=== PATIENT | female | born 1990 | race Caucasian/White ===

== ENCOUNTER → 2022-03-31 | Outpatient (CLI) | payer BC, SELFPAY ==
[2022-04-08 15:39] LABS: HPV APTIMA, High Risk Negative (Negative)
== END | disposition home or self-care (01) ==
LOC: LABSPEC 16:17
PROVIDERS: PCP Family Medicine; Referring Provider Registered Nurse; Visit Provider Registered Nurse
DX: Z12.4 Encounter for screening for malignant neoplasm of cervix (principal)
CPT/HCPCS: 87624; 88175; G0145

== ENCOUNTER → 2022-05-20 | Outpatient (CLI) | payer BC, SELFPAY ==
[2022-05-21 21:07] LABS: Chlamydia By Nucleic Acid AMP Negative (Negative)
[2022-05-21 21:44] LABS: Gonococcus By Nucleic Acid AMP Negative (Negative)
== END | disposition home or self-care (01) ==
LOC: LABSPEC 12:00
PROVIDERS: PCP Family Medicine; Referring Provider Obstetrics & Gynecology; Visit Provider Obstetrics & Gynecology
DX: Z34.90 Encounter for supervision of normal pregnancy, unspecified, unspecified trimester (principal)
CPT/HCPCS: 87086; 87491; 87591

== ENCOUNTER → 2022-06-04 | Outpatient (CLI) | payer BC, SELFPAY ==
[2022-06-04 10:47] LABS: Absolute Lymphocyte Count 2.16 X10^3/uL (0.83-4.51); Absolute Neutrophil Count 7.5 X10^3/uL (2.0-7.7); Basophil# 0.03 X10^3/uL; Basophil% 0.3 % (0-1); Eosinophil# 0.11 X10^3/uL; Eosinophils% 1.1 % (0-5); Hematocrit 41.2 % (37-47); Hemoglobin 13.9 g/dL (12.0-15.0); Lymphocyte # 2.16 X10^3/ul (0.83-4.51); Lymphocyte % 20.8 % (19-41); Mean Corp Hgb Conc 33.7 g/dL (32-36); Mean Corpuscular Hgb 30.2 pg (27.0-32.0); Mean Corpuscular Volume 89.6 fL (81-99); Mean Platelet Vol. 9.8 fl (6.2-12.0); Monocyte# 0.56 X10^3/uL; Monocyte% 5.4 % (0-10); NRBC Flagged by Analyzer 0 % (0-5); Neutrophil # 7.52 X10^3/uL (2.7-7.7); Neutrophil % 72.2 % (47-70); Platelet Count 271 K/mm3 (150-450); RBC Distribution Width CV 13.1 % (11.6-14.6); White Blood Count 10.4 K/mm3 (4.4-11.0)
[2022-06-04 10:56] LABS: Glucose Challenge Gest 1H 50g 123 mg/dL (70-140)
[2022-06-04 11:38] LABS: HIV - WCH Non-Reactive (Nonreactive); Hepatitis B Surface Antigen Non-Reactive (Nonreactive); Hepatitis C Antibody Non-Reactive (Nonreactive); Rubella IgG Reactive (Nonreactive); Syphilis Antibodies Non-reactive
[2022-06-04 11:43] LABS: NATERA MAILED SPECIMEN
== END | disposition home or self-care (01) ==
PROVIDERS: PCP Family Medicine; Referring Provider Obstetrics & Gynecology; Visit Provider Obstetrics & Gynecology
DX: O09.90 Supervision of high risk pregnancy, unspecified, unspecified trimester (principal); Z31.430 Encounter of female for testing for genetic disease carrier status for procreative management; Z3A.00 Weeks of gestation of pregnancy not specified
CPT/HCPCS: 36415; 82950; 85025; 86703; 86762; 86780; 86803; 86850; 86900; 86901; 87340

== ENCOUNTER → 2022-07-16 | Outpatient (CLI) | payer BC, SELFPAY | END | disposition home or self-care (01) | PROVIDERS: PCP Family Medicine; Referring Provider Registered Nurse; Visit Provider Registered Nurse | DX: Z36.9 Encounter for antenatal screening, unspecified (principal) | CPT/HCPCS: 36415 ==

== ENCOUNTER → 2022-10-01 | Outpatient (CLI) | payer BC, SELFPAY ==
[2022-10-01 09:56] LABS: Absolute Lymphocyte Count 2.14 X10^3/uL (0.83-4.51); Absolute Neutrophil Count 8.7 X10^3/uL (2.0-7.7); Basophil# 0.02 X10^3/uL; Basophil% 0.2 % (0-1); Eosinophil# 0.09 X10^3/uL; Eosinophils% 0.8 % (0-5); Hematocrit 34.1 % (37-47); Hemoglobin 11.1 g/dL (12.0-15.0); Lymphocyte # 2.14 X10^3/ul (0.83-4.51); Lymphocyte % 18.7 % (19-41); Mean Corp Hgb Conc 32.6 g/dL (32-36); Mean Corpuscular Hgb 29.8 pg (27.0-32.0); Mean Corpuscular Volume 91.7 fL (81-99); Mean Platelet Vol. 10.8 fl (6.2-12.0); Monocyte# 0.44 X10^3/uL; Monocyte% 3.8 % (0-10); NRBC Flagged by Analyzer 0 % (0-5); Neutrophil # 8.68 X10^3/uL (2.7-7.7); Neutrophil % 75.8 % (47-70); Platelet Count 229 K/mm3 (150-450); RBC Distribution Width CV 12.8 % (11.6-14.6); RBC Distribution Width SD 42.8 fl (35.1-43.9); Red Blood Count 3.72 M/mm3 (4.2-5.4); White Blood Count 11.5 K/mm3 (4.4-11.0)
[2022-10-01 10:35] LABS: Glucose Challenge Gest 1H 50g 141 mg/dL (70-140)
[2022-10-01 11:01] LABS: HIV - WCH Non-Reactive (Nonreactive); Syphilis Antibodies Non-reactive
== END | disposition home or self-care (01) ==
PROVIDERS: PCP Family Medicine; Referring Provider Obstetrics & Gynecology; Visit Provider Obstetrics & Gynecology
DX: O09.90 Supervision of high risk pregnancy, unspecified, unspecified trimester (principal); Z13.1 Encounter for screening for diabetes mellitus; Z3A.00 Weeks of gestation of pregnancy not specified
CPT/HCPCS: 36415; 82950; 85025; 86703; 86780

== ENCOUNTER → 2022-11-12 | Outpatient (CLI) | payer BC, SELFPAY ==
[2022-11-12 07:40] LABS: Glucose GTT-Gestation. Fasting 88 mg/dL (<105)
[2022-11-12 09:00] LABS: Glucose GTT-Gestational 1 Hr 173 mg/dL (<190)
[2022-11-12 09:29] LABS: Glucose GTT-Gestational 2 Hr 145 mg/dL (<165)
[2022-11-12 10:39] LABS: Glucose GTT-Gestational 3 Hr 134 L (<145)
== END | disposition home or self-care (01) ==
LOC: LAB 06:45
PROVIDERS: PCP Family Medicine; Referring Provider Obstetrics & Gynecology; Visit Provider Obstetrics & Gynecology
DX: O99.810 Abnormal glucose complicating pregnancy (principal); Z3A.00 Weeks of gestation of pregnancy not specified
CPT/HCPCS: 36415; 82951; 82952

== ENCOUNTER 2022-11-24 13:17 | Outpatient (CLI) | payer BC, SELFPAY ==
[2022-11-24 13:33] VITALS: BP 122/77; PULSE 89
[2022-11-24 13:51] VITALS: BMI 35.6
[2022-11-24 14:13] LABS: ROM Internal Control Test YES-OK TO RESULT pt. (Internal QC); ROM Patient Test Negative (Negative); Record Kit Lot#, ROM+ K1409
--- NOTE | 2022-11-24 14:36 | OB.TRI.HP_ITS ---
HPI - General HPI Narrative AMBREEN HAWTHORNE, is a 32 y/o @ 36 weeks 1 day who presents to L&D with possible loss of fluid. no vaginal bleeding or dec fm. no contraction pain Maternal Data Information ROBER Calculator Estimated Delivery Date Method Current WG Current Estimate 12/21/22 LMP (Certain) 36w 1d PFSH PFSH Medical History Rheumatoid arthritis Home Medications certolizumab pegol 400 mg/2 mL (200 mg/mL x2) subcutaneous syringe kit (Cimzia) 400 mg subcut MONTHLY 03/31/22 [History Last Taken 11/18/22 21:00 400 mg] folic acid 1 mg tablet 1 mg PO DAILY 05/13/22 [History Last Taken Unknown] multivitamin (One Daily Multivitamin tablet) 1 tab PO DAILY 05/13/22 [History Last Taken 11/15/22 21:00 1 TAB] Allergy/AdvReac Type Severity Reaction Status Date / Time No Known Allergies Allergy Verified 11/24/22 13:48 Family History Father Celiac disease Grandmother Diabetes Grandfather Heart disease Grandmother Diabetes Osteoporosis Surgical History Hx of wisdom tooth extraction Social History adopted: No household members: family number of children: 1 current occupational status: employed current occupation: [employer] current occupational exposures/hazards: No pets and animals: Yes (not managing litterbox) pets and animals: cat(s) and dog(s) history of recent travel: No sexually active: Yes Smoking Status: Never smoker alcohol intake: current alcohol intake frequency: holidays/special occasions only details: social- not while substance use type: does not use well-balanced diet: daily or most days caffeine: No eating out: 1-3 times/week during the past year weight has: remained stable stanley/jewish: Latter-Day seatbelt use: always do you feel safe at home: Yes additional social history: spouse - Christopher (interpretive program coordinator) History 2 Elective abortions Hx Para 1 Spontaneous abortions Hx # Term Pregnancies Ectopic pregnancies Hx # Pregnancies Multiple births # of living children 1 Past Pregnancies Del. Date Name GA/Weeks Outcome Route Bth Weight Gen Labor Lgth Anesthesia Del Locatn Provider FOB 07/01/20 Jayna 42 live - full term 8#13oz Female epidural Abi[facility] Davison Fr[facility] Patterson Delivery Date: 07/01/20 Last Updated by: Izabella Rivero IOL post date Visit Details Expected Delivery Route/Plan Labor Preferences- CB/BF classes: [] labor support person: [] labor intervention preferences: [] pain management options preferred: [] cut cord/dad catch: [] : [] PP control planned: [] discussed possible routes of delivery and associated risks: [] special requests: [] Plans Covid status: discussed Flu vaccine: discussed Tdap vaccine: given Rhogam: na LARC form signed:declined movement and labor precautions reviewed. Problem list reviewed and updated with the most current plan of care details and appropriate orders placed. Relevant counseling for the gestational age provided. Continue routine care and follow up unless otherwise noted in visit notes/problem list details OB Flowsheet Initial Weight: Not Recorded Date -?-?-?-?-?-?-?-?-?-?-?-?- EGA Weight BP Urine Prot -?-?-?-?-?-?-?-?-?-?-?-?- Glucose FHR FuHt Pres Dilation -?-?-?-?-?-?-?-?-?-?-?-?- Effaced St Visit Note 05/20/22 -?-?-?-?-?-?-?-?-?-?-?-?- 9w 2d 194 lb 126/82 -?-?-?-?-?-?-?-?-?-?--?-?- 180 -?-?-?-?-?-?-?-?-?-?-?-?- JV- single live iup consistent with LMP. ROBER 12/21/22. desires NIPT. 06/16/22 -?-?-?-?-?-?-?-?-?-?-?-?- 13w 1d 193 lb 6 oz 122/83 Nega tive -?-?-?-?-?-?-?-?-?-?-?-?- Negative 156 -?-?-?-?-?-?-?-?-?-?-?-?- LC- normal labs. no vb/cramping. discussed and desires AFP. 07/16/22 -?-?-?-?-?-?-?-?-?-?-?-?- 17w 3d 196 lb 4 oz 116/83 Trac e -?-?-?-?-?-?-?-?-?-?-?-?- Negative 155 -?-?-?-?-?-?--?-?-?-?-?-?- JV- going to [facility] tomorrow. no complaints. afp ordered. 08/13/22 -?-?-?-?-?-?-?-?-?-?-?-?- 21w 3d 198 lb 2 oz 198 lb 2 oz 125/82 Negative -?-?-?-?-?-?-?-?-?-?-?-?- Negative 150 -?-?-?-?-?-?-?-?-?-?-?-?- SM- no vb lof go od fm no regular ctx 09/10/22 -?-?-?-?-?-?-?-?-?-?-?-?- 25w 3d 200 lb 8 oz 111/75 Nega tive -?-?-?-?-?-?-?-?-?-?-?-?- Negative 154 25.5 -?-?-?-?-?-?-?-?-?-?-?-?- JV- no lof, vagi nal bleeding, or dec fm. no complaints. gct next visti. 10/08/22 -?-?-?-?-?-?-?-?-?-?-?-?- 29w 3d 204 lb 4 oz 107/69 Nega tive -?-?-?-?-?-?-?-?-?-?-?-?- Negative 140 28 -?-?-?-?-?-?-?-?-?-?-?-?- KW-no vb/lof/ctx . good fm. 3 hour on tuesday. 10/22/22 -?-?-?-?-?-?-?-?-?-?-?-?- 31w 3d 203 lb 138/80 Negative -?-?-?-?-?-?-?-?-?-?-?-?- Negative 145 31 -?-?-?-?-?-?-?-?-?-?-?-?- SM- no vb lof go od fm no regular ctx 11/05/22 -?-?-?-?-?-?-?-?-?-?-?-?- 33w 3d 206 lb 2 oz 114/69 Nega tive -?-?-?-?-?-?-?-?-?-?-?-?- Negative 145 34 -?-?-?-?-?-?-?-?-?-?-?-?- KW-no vb/lof/ctx . good fm. TDAP and flu today. 11/19/22 -?-?-?-?-?-?-?-?-?-?-?-?- 35w 3d 206 lb 128/80 Negative -?-?-?-?-?-?-?-?-?-?-?-?- Negative 140 36 -?-?-?-?-?-?-?-?-?-?-?-?- SM- no vb lof go od fm n regular ctx, had spotting last staurday and went away ROS Constitutional Constitutional: Reports systems reviewed and no addt'l complaints, except as documented Gastrointestinal Gastrointestinal: Denies bloating, constipation, cramping, diarrhea, nausea or vomiting Genitourinary Genitourinary: Reports other Details: Denies vaginal odor, vaginal bleeding, or vaginal discharge ; Denies difficulty urinating or flank pain NST FHR Rate Baby A Baseline: 130 Variability:: Moderate Accelerations:: 15 x 15 Decelerations:: None NST Reactive:: Yes FHR Category:: Category I Assessment & Plan (1) Abnormal glucose affecting : COMMENT: 3 hr gtt ordered (2) Circumvallate placenta: COMMENT: growth US q 4 weeks -33% at 23 weeks, 46% at 28 weeks. 32 wk 42%; 10 55% (3) History of depression, currently : (4) Supervision of high-risk : COMMENT: PRR , ROBER 12/21/22, girl Isabela Dorantes, Leonrado (5) : QUALIFIERS: Weeks of gestation: 35 weeks Qualified Code(s): Z3A.35 - 35 weeks gestation of COMMENT: normal anatomy, NIPT low risk, nl Carrier testing, afp negative (6) Rheumatoid arthritis: COMMENT: on a biologic. plan for monthly growth scans (7) False labor before 37 completed weeks of gestation: COMMENT: Rom plus neg on 11/24/22 PLAN: Plan Rom + was negative and cx is closed pt reassured per nurse NST reactive ok to dc to home with labor and srom precautions Charges/Coding Multi Select Codes Urinary/Genital Urinary/Genital CPT Codes: 78539-09 non-stress test Interp
== END 2022-11-24 14:40 | disposition home or self-care (01) ==
LOC: WPOUT 13:21 → WP 13:22
PROVIDERS: PCP Family Medicine; Visit Provider Obstetrics & Gynecology
DX: O47.03 False labor before 37 completed weeks of gestation, third trimester (principal); M06.9 Rheumatoid arthritis, unspecified; Z3A.36 36 weeks gestation of pregnancy; O99.891 Other specified diseases and conditions complicating pregnancy; O43.113 Circumvallate placenta, third trimester; O99.810 Abnormal glucose complicating pregnancy; Z79.899 Other long term (current) drug therapy
CPT/HCPCS: 59025; 59050; 84112; 99221; G0378

== ENCOUNTER → 2022-11-25 | Outpatient (CLI) | payer BC, SELFPAY ==
[2022-11-25 15:32] LABS: Group B Strep DNA By PCR POSITIVE (Negative); Probe Check PASS
== END | disposition home or self-care (01) ==
LOC: LABSPEC 13:23
PROVIDERS: PCP Family Medicine; Visit Provider Advanced Practice Midwife
DX: Z34.90 Encounter for supervision of normal pregnancy, unspecified, unspecified trimester (principal)
CPT/HCPCS: 87653

== ENCOUNTER 2022-12-03 11:25 | Outpatient (CLI) | payer BC, SELFPAY ==
[2022-12-03] VITALS (43 sets, daily range): BP systolic 115–120; BP diastolic 70–71; PULSE 92–120; TEMP 36.8; O2SAT 96–99; BMI 35.3
--- NOTE | 2022-12-03 13:18 | EKG12_ITS ---
Test Reason : TACHY Blood Pressure : / mmHG Vent. Rate : 099 BPM Atrial Rate : 099 BPM P-R Int : 142 ms QRS Dur : 084 ms QT Int : 354 ms P-R-T Axes : 030 014 009 degrees QTc Int : 454 ms Normal sinus rhythm Normal ECG No previous ECGs available Confirmed by CHERELLE QUILES, NANY ([id number]), medical editor DUSTIN ARMENTA ([id number]) on 12/08/2022 6:34:53 AM Referred By: Laney Alonso Confirmed By:NANY VILLARREAL MD
[2022-12-03 13:46] LABS: Hematocrit 32.1 % (37-47); Hemoglobin 10.6 g/dL (12.0-15.0); Mean Corpuscular Hgb 28.7 pg (27.0-32.0); Mean Platelet Vol. 11.3 fl (6.2-12.0); Platelet Count 165 K/mm3 (150-450); RBC Distribution Width CV 13.2 % (11.6-14.6); RBC Distribution Width SD 41.3 fl (35.1-43.9); Red Blood Count 3.69 M/mm3 (4.2-5.4); White Blood Count 8.8 K/mm3 (4.4-11.0)
[2022-12-03 14:06] LABS: ALB/GLOB Ratio 0.6 RATIO (0.9-2.4); AST(SGOT) 8 U/L (15-37); Alanine Aminotransfer ALT/SGPT 17 U/L (13-56); Albumin, Serum 2.6 g/dL (3.2-5.0); Alkaline Phosphatase 133 U/L (45-117); Anion Gap 6 (5-15); BUN 6 mg/dL (7-18); Calcium,Total 8.7 mg/dL (8.5-10.1); Chloride 109 mmol/L (98-107); Creatinine, Serum 0.33 mg/dL (0.55-1.02); EST Glomerular Filtration Rate 243 mL/min (>60); Est Glom Filt Rate - Afr Amer 294 mL/min (>60); Estimated Creatinine Clearance 211.34 ml/min; Globulin 4.2 g/dL (2.2-4.2); Glucose 85 mg/dL (74-106); Protein, Total 6.8 g/dL (6.4-8.2); Sodium Level 136 mmol/L (136-145)
--- NOTE | 2022-12-04 11:01 | OB.TRI.HP_ITS ---
HPI - General HPI Narrative AMBREEN HAWTHORNE, is a 32 y/o @ 37 weeks 3 days who presents to L&D with the complaint of rapid heart rate. no shortness of breath, chest pain, or nausea. She reports good movement without loss of fluid or vaginal bleeding. her inital pulse was 100 range Maternal Data Information ROBER Calculator Estimated Delivery Date Method Current WG Current Estimate 12/21/22 LMP (Certain) 37w 4d PFSH PFSH Medical History Rheumatoid arthritis Home Medications certolizumab pegol 400 mg/2 mL (200 mg/mL x2) subcutaneous syringe kit (Cimzia) 400 mg subcut MONTHLY 03/31/22 [History Last Taken 11/19/22 11:51] folic acid 1 mg tablet 1 mg PO DAILY 05/13/22 [History Last Taken 12/02/22 11:51] multivitamin (One Daily Multivitamin tablet) 1 tab PO DAILY 05/13/22 [History Last Taken 12/02/22 11:51] Allergy/AdvReac Type Severity Reaction Status Date / Time No Known Allergies Allergy Verified 12/03/22 11:50 Family History Father Celiac disease Grandmother Diabetes Grandfather Heart disease Grandmother Diabetes Osteoporosis Surgical History Hx of wisdom tooth extraction Social History adopted: No household members: family number of children: 1 current occupational status: employed current occupation: [employer] current occupational exposures/hazards: No pets and animals: Yes (not managing litterbox) pets and animals: cat(s) and dog(s) history of recent travel: No sexually active: Yes Smoking Status: Never smoker alcohol intake: current alcohol intake frequency: holidays/special occasions only details: social- not while substance use type: does not use well-balanced diet: daily or most days caffeine: No eating out: 1-3 times/week during the past year weight has: remained stable stanley/anglican: Buddhism seatbelt use: always do you feel safe at home: Yes additional social history: spouse - Christopher (program control analyst) History 2 Elective abortions Hx Para 1 Spontaneous abortions Hx # Term Pregnancies Ectopic pregnancies Hx # Pregnancies Multiple births # of living children 1 Past Pregnancies Del. Date Name GA/Weeks Outcome Route Bth Weight Infant [facility]20 Jayna 42 live - full term 8#13oz Female epidural [place] [address] [place] Delivery Date: 07/01/20 Last Updated by: Izabella Rivero IOL post date Visit Details Expected Delivery Route/Plan Labor Preferences- CB/BF classes: [] labor support person: [] labor intervention preferences: [] pain management options preferred: [] cut cord/dad catch: [] : [] PP control planned: [] discussed possible routes of delivery and associated risks: [] special requests: [] Plans Covid status: discussed Flu vaccine: discussed Tdap vaccine: given Rhogam: na LARC form signed:declined movement and labor precautions reviewed. Problem list reviewed and updated with the most current plan of care details and appropriate orders placed. Relevant counseling for the gestational age provided. Continue routine care and follow up unless otherwise noted in visit notes/problem list details OB Flowsheet Initial Weight: Not Recorded Date -?-?-?-?-?-?-?-?-?-?-?-?- EGA Weight BP Urine Prot -?-?-?-?-?-?-?-?-?-?-?-?- Glucose FHR FuHt Pres Dilation -?-?-?-?-?-?-?-?-?-?-?-?- Effaced St Visit Note 05/20/22 -?-?-?-?-?-?-?-?-?-?-?-?- 9w 2d 194 lb 126/82 -?-?-?-?-?-?-?-?-?-?-?-?- 180 -?-?-?-?-?-?-?-?-?-?-?-?- JV- single live iup consistent with LMP. ROBER 12/21/22. desires NIPT. 06/16/22 -?-?-?-?-?-?-?-?-?-?-?-?- 13w 1d 193 lb 6 oz 122/83 Nega tive -?-?-?-?-?-?-?-?-?-?-?-?- Negative 156 -?-?-?-?-?-?-?-?-?-?-?-?- LC- normal labs. no vb/cramping. discussed and desires AFP. 07/16/22 -?-?-?-?-?-?-?-?-?-?-?-?- 17w 3d 196 lb 4 oz 116/83 Trac e -?-?-?-?-?-?-?-?-?-?-?-?- Negative 155 -?-?-?-?-?-?-?-?-?-?-?-?- JV- going to [facility] tomorrow. no complaints. afp ordered. 08/13/22 -?-?-?-?-?-?-?-?-?-?-?-?- 21w 3d 198 lb 2 oz 198 lb 2 oz 125/82 Negative -?-?-?-?-?-?-?-?-?-?-?-?- Negative 150 -?-?-?-?-?-?--?-?-?-?-?-?- SM- no vb lof go od fm no regular ctx 09/10/22 -?-?-?-?-?-?-?-?-?-?-?-?- 25w 3d 200 lb 8 oz 111/75 Nega tive -?-?-?-?-?-?-?-?-?-?-?-?- Negative 154 25.5 -?-?-?-?-?-?-?-?-?-?-?-?- JV- no lof, vagi nal bleeding, or dec fm. no complaints. gct next visti. 10/08/22 -?-?-?-?-?-?-?-?-?-?-?-?- 29w 3d 204 lb 4 oz 107/69 Nega tive -?-?-?-?-?-?-?-?-?-?-?-?- Negative 140 28 -?-?-?-?-?-?-?-?-?-?-?-?- KW-no vb/lof/ctx . good fm. 3 hour on tuesday. 10/22/22 -?-?-?-?-?-?-?-?-?-?-?-?- 31w 3d 203 lb 138/80 Negative -?-?-?-?-?-?-?-?-?-?-?-?- Negative 145 31 -?-?-?-?-?-?-?-?-?-?-?-?- SM- no vb lof go od fm no regular ctx 11/05/22 -?-?-?-?-?-?-?-?-?-?-?-?- 33w 3d 206 lb 2 oz 114/69 Nega tive -?-?-?-?-?-?-?-?-?-?-?-?- Negative 145 34 -?-?-?-?-?-?-?-?-?-?-?-?- KW-no vb/lof/ctx . good fm. TDAP and flu today. 11/19/22 -?-?-?-?-?-?-?-?-?-?-?-?- 35w 3d 206 lb 128/80 Negative -?-?-?-?-?-?-?-?-?-?-?-?- Negative 140 36 -?-?-?-?-?-?-?-?-?-?-?-?- SM- no vb lof go od fm n regular ctx, had spotting last staurday and went away 11/25/22 -?-?-?-?-?-?-?-?-?-?-?-?- 36w 2d 203 lb 8 oz 112/76 Nega tive -?-?-?-?-?-?-?-?-?-?-?-?- Negative 155 38 -?-?-?-?-?-?-?-?-?-?-?-?- no vb/lof/ctx. g ood fm. GBS today ROS Constitutional Constitutional: Reports systems reviewed and no addt'l complaints, except as documented Gastrointestinal Gastrointestinal: Denies bloating, constipation, cramping, diarrhea, nausea or vomiting Genitourinary Genitourinary: Reports other Details: Denies vaginal odor, vaginal bleeding, or vaginal discharge ; Denies difficulty urinating or flank pain NST FHR Rate Baby A Baseline: 130 Variability:: Moderate Accelerations:: 15 x 15 Decelerations:: None NST Reactive:: Yes FHR Category:: Category I Assessment & Plan (1) Positive GBS test: (2) False labor before 37 completed weeks of gestation: COMMENT: Rom plus neg on 11/24/22 (3) Maternal care for tachycardia during : COMMENT: EKG normal on 12/03/22 - normal sinus rhythm (4) Abnormal glucose affecting : COMMENT: 3 hr gtt ordered (5) Circumvallate placenta: COMMENT: growth US q 4 weeks -33% at 23 weeks, 46% at 28 weeks. 32 wk 42%; 10 55% (6) History of depression, currently : (7) Supervision of high-risk : COMMENT: PRR , ROBER 12/21/22, girl Isabela Dorantes, Leonardo (8) : QUALIFIERS: Weeks of gestation: 36 weeks Qualified Code(s): Z3A.36 - 36 weeks gestation of COMMENT: GBS pos, normal anatomy, NIPT low risk, nl Carrier testing, afp negative (9) Rheumatoid arthritis: COMMENT: on a biologic. plan for monthly growth scans PLAN: Plan EKG normal, heart rate 90's-100 with PO hydration. normal cbc and cmp with exception of mild anemia. - start iron supplement now. ok to dc to home with close office follow up in 1 week. Charges/Coding Multi Select Codes Urinary/Genital Urinary/Genital CPT Codes: 02276-63 non-stress test Interp
== END 2022-12-03 16:03 | disposition home or self-care (01) ==
LOC: WPOUT 11:26 → WP 11:28
PROVIDERS: PCP Family Medicine; Referring Provider Obstetrics & Gynecology; Visit Provider Obstetrics & Gynecology
DX: O99.891 Other specified diseases and conditions complicating pregnancy (principal); M06.9 Rheumatoid arthritis, unspecified; R00.0 Tachycardia, unspecified; Z3A.37 37 weeks gestation of pregnancy; O99.820 Streptococcus B carrier state complicating pregnancy; O99.810 Abnormal glucose complicating pregnancy; O43.113 Circumvallate placenta, third trimester
CPT/HCPCS: 36415; 59025; 59050; 80053; 85027; 93005; 99221; G0378

== ENCOUNTER 2022-12-17 20:36 | Inpatient (IN) | payer BC, SELFPAY ==
[2022-12-17] VITALS (14 sets, daily range): BP systolic 119–162; BP diastolic 77–98; PULSE 80–110; TEMP 36.2–37; O2SAT 98–99; BMI 35.4
--- NOTE | 2022-12-17 15:30 | EKG12_ITS ---
Test Reason : CP Blood Pressure : / mmHG Vent. Rate : 095 BPM Atrial Rate : 095 BPM P-R Int : 144 ms QRS Dur : 082 ms QT Int : 350 ms P-R-T Axes : 034 014 027 degrees QTc Int : 439 ms Normal sinus rhythm with sinus arrhythmia Normal ECG When compared with ECG of 03-DEC-2022 13:33, No significant change was found Confirmed by CHERELLE QUILES, NANY ([id number]), business editor ELLA ELKINS ([id number]) on 12/29/2022 12:54:32 PM Referred By: LISA Confirmed By:NANY VILLARREAL MD
--- NOTE | 2022-12-17 17:25 | OB.TRI.HP_ITS ---
HPI - General General Date of Admission: 12/17/22 HPI Narrative AMBREEN HAWTHORNE, is a 32 y/o @ 39 weeks 3 days who presents with chest pressure. EKG was done and found to be normal. She denies fevers, chills, tachycardia, or shortness of breath. Maternal Data Information ROBER Calculator Estimated Delivery Date Method Current WG Current Estimate 12/21/22 LMP (Certain) 39w 3d PFSH PFS Medical History (Updated 12/17/22 @ 19:53 by Doreen Christine) depression Rheumatoid arthritis Home Medications certolizumab pegol 400 mg/2 mL (200 mg/mL x2) subcutaneous syringe kit (Cimzia) 400 mg subcut MONTHLY 03/31/22 [History Last Taken 11/19/22 11:51] folic acid 1 mg tablet 1 mg PO DAILY 05/13/22 [History Last Taken 12/16/22 19:00 1 mg] multivitamin (One Daily Multivitamin tablet) 1 tab PO DAILY 05/13/22 [History Last Taken 12/17/22 12:00 1 TAB] Allergy/AdvReac Type Severity Reaction Status Date / Time No Known Allergies Allergy Verified 12/17/22 19:20 Family History Father Celiac disease Grandmother Diabetes Grandfather Heart disease Grandmother Diabetes Osteoporosis Surgical History Hx of wisdom tooth extraction Social History adopted: No household members: family number of children: 1 current occupational status: employed current occupation: [employer] current occupational exposures/hazards: No pets and animals: Yes (not managing litterbox) pets and animals: cat(s) and dog(s) history of recent travel: No sexually active: Yes Smoking Status: Never smoker alcohol intake: current alcohol intake frequency: holidays/special occasions only details: social- not while substance use type: does not use well-balanced diet: daily or most days caffeine: No eating out: 1-3 times/week during the past year weight has: remained stable stanley/advent: Oriental Orthodox seatbelt use: always do you feel safe at home: Yes additional social history: spouse - Christopher (training program manager) History 2 Elective abortions Hx Para 1 Spontaneous abortions Hx # Term Pregnancies Ectopic pregnancies Hx # Pregnancies Multiple births # of living children 1 Past Pregnancies Del. Date Name GA/Weeks Outcome Route Bth Weight Gen Labor Lgth Anesthesia Del Locatn Provider FOB 07/01/20 Jayna 42 live - full term 8#13oz Female epidural [place] [facility] Patterson Delivery Date: 07/01/20 Last Updated by: Izabella Rivero IOL post date Visit Details Expected Delivery Route/Plan Labor Preferences- CB/BF classes: [] labor support person: [] labor intervention preferences: [] pain management options preferred: [] cut cord/dad catch: [] : [] PP control planned: [] discussed possible routes of delivery and associated risks: [] special requests: [] Plans Covid status: discussed Flu vaccine: discussed Tdap vaccine: given Rhogam: na LARC form signed:declined movement and labor precautions reviewed. Problem list reviewed and updated with the most current plan of care details and appropriate orders placed. Relevant counseling for the gestational age provided. Continue routine care and follow up unless otherwise noted in visit notes/problem list details OB Flowsheet Initial Weight: Not Recorded Date -?-?-?-?-?-?-?-?-?-?-?-?- EGA Weight BP Urine Prot -?-?-?-?-?-?-?-?-?-?-?-?- Glucose FHR FuHt Pres Dilation -?-?-?-?-?-?-?-?-?-?-?-?- Effaced St Visit Note 05/20/22 -?-?-?-?-?-?-?-?-?-?-?-?- 9w 2d 194 lb 126/82 -?-?-?-?-?-?-?-?-?-?-?-?- 180 -?-?-?-?-?--?-?-?-?-?-?-?- JV- single live iup consistent with LMP. ROBER 12/21/22. desires NIPT. 06/16/22 -?-?-?-?-?-?-?-?-?-?-?-?- 13w 1d 193 lb 6 oz 122/83 Nega tive -?-?-?-?-?-?-?-?-?-?-?-?- Negative 156 -?-?-?-?-?-?-?-?-?-?-?-?- LC- normal labs. no vb/cramping. discussed and desires AFP. 07/16/22 -?-?-?-?--?-?-?-?-?-?-?-?- 17w 3d 196 lb 4 oz 116/83 Trac e -?-?-?-?-?-?-?-?-?-?-?-?- Negative 155 -?-?-?-?-?-?-?-?-?-?-?-?- JV- going to [facility] tomorrow. no complaints. afp ordered. 08/13/22 -?-?-?-?-?-?-?-?-?-?-?-?- 21w 3d 198 lb 2 oz 198 lb 2 oz 125/82 Negative -?-?-?-?-?-?-?-?-?-?-?-?- Negative 150 -?-?-?-?-?-?-?-?-?-?-?-?- SM- no vb lof go od fm no regular ctx 09/10/22 -?-?-?-?-?-?-?-?-?-?-?-?- 25w 3d 200 lb 8 oz 111/75 Nega tive -?-?-?-?-?-?-?-?-?-?-?-?- Negative 154 25.5 -?-?-?-?-?-?-?-?-?-?-?-?- JV- no lof, vagi nal bleeding, or dec fm. no complaints. gct next visti. 10/08/22 -?-?-?-?-?-?-?-?-?-?-?-?- 29w 3d 204 lb 4 oz 107/69 Nega tive -?-?-?-?-?-?-?-?-?-?-?-?- Negative 140 28 -?-?-?-?-?-?-?-?-?-?-?-?- KW-no vb/lof/ctx . good fm. 3 hour on tuesday. 10/22/22 -?-?-?-?-?-?-?-?-?-?-?-?- 31w 3d 203 lb 138/80 Negative -?-?-?-?-?-?-?-?-?-?-?-?- Negative 145 31 -?-?-?-?-?-?-?-?-?-?-?-?- SM- no vb lof go od fm no regular ctx 11/05/22 -?-?-?-?-?-?-?-?-?-?-?-?- 33w 3d 206 lb 2 oz 114/69 Nega tive -?-?-?-?-?-?-?-?-?-?-?-?- Negative 145 34 -?-?-?-?-?-?-?-?-?-?-?-?- KW-no vb/lof/ctx . good fm. TDAP and flu today. 11/19/22 -?-?-?-?-?-?-?-?-?-?-?-?- 35w 3d 206 lb 128/80 Negative -?-?-?-?-?-?-?-?-?-?-?-?- Negative 140 36 -?-?-?-?-?-?-?-?-?-?-?-?- SM- no vb lof go od fm n regular ctx, had spotting last staurday and went away 11/25/22 -?-?-?-?-?-?-?-?-?-?-?-?- 36w 2d 203 lb 8 oz 112/76 Nega tive -?-?-?-?-?-?-?-?-?-?-?-?- Negative 155 38 -?-?-?-?-?-?-?-?-?-?-?-?- no vb/lof/ctx. g ood fm. GBS today 12/10/22 -?-?-?-?-?-?-?-?-?-?-?-?- 38w 3d 208 lb 2 oz 128/86 Nega tive -?-?--?-?-?-?-?-?-?-?-?-?- Negative 150 37 Cephalic 2 -?-?-?-?-?-?-?-?-?-?-?-?- 50 -3 JV- no lof , vaginal bleeding, or dec fm. gbs +, ekg was normal on l&D still having intermittent tachycardia 12/17/22 -?-?-?-?-?-?-?-?-?-?-?-?- 39w 3d 207 lb 6 oz 123/86 Nega tive -?-?-?-?-?-?-?-?-?-?-?-?- Negative 140 40 Cephalic 2 .5 -?-?-?-?-?-?-?-?-?-?-?-?- 60 -2 KW- no lof /vb. regular contractions. having heart palpitations and chest heaviness. to for evaluation. JV aware ROS Constitutional Constitutional: Reports systems reviewed and no addt'l complaints, except as documented Gastrointestinal Gastrointestinal: Denies bloating, constipation, cramping, diarrhea, nausea or vomiting Genitourinary Genitourinary: Reports other Details: Denies vaginal odor, vaginal bleeding, or vaginal discharge ; Denies difficulty urinating or flank pain Physical Exam Const alert, oriented x3 and no apparent distress General Appearance: cooperative and comfortable HEENT normocephalic Lymph Lymphatic: no lymphadenopathy noted Chest inspection of chest normal and palpation of chest normal Chest: symmetrical chest wall rise Resp normal respiratory effort, normal air movement and clear to auscultation bilaterally no CVA tenderness Extremity normal to inspection General Extremity: edema bilateral (trace ) NST FHR Rate Baby A Baseline: 140 Variability:: Moderate Accelerations:: 15 x 15 Decelerations:: None NST Reactive:: Yes FHR Category:: Category I Assessment & Plan (1) Chest pressure: PLAN: will try a GI cocktail for now. EKG normal (2) Maternal care for tachycardia during : COMMENT: EKG normal on 12/03/22 - normal sinus rhythm (3) Positive GBS test: (4) False labor before 37 completed weeks of gestation: COMMENT: Rom plus neg on 11/24/22 (5) Abnormal glucose affecting : COMMENT: 3 hr gtt ordered (6) Circumvallate placenta: COMMENT: growth US q 4 weeks -33% at 23 weeks, 46% at 28 weeks. 32 wk 42%; 11/15 55% (7) History of depression, currently : (8) Supervision of high-risk : COMMENT: PRR , ROBER 12/21/22, girl Isabela Dorantes, Leonardo (9) : QUALIFIERS: Weeks of gestation: 39 weeks Qualified Code(s): Z3A.39 - 39 weeks gestation of COMMENT: GBS pos, normal anatomy, NIPT low risk, nl Carrier testing, afp negative (10) Rheumatoid arthritis: COMMENT: on a biologic. plan for monthly growth scans Charges/Coding Multi Select Codes Visit Charges Office Visit/Consults: 62707 OV L3 Est Urinary/Genital Urinary/Genital CPT Codes: 28997-82 non-stress test Interp
[2022-12-17] MEDS: Famotidine 20 MG Tablet 40 MG PO (17:52)
[2022-12-17] MEDS: Mag Hydrox/Al Hydrox/Simeth 30 ML UDC PO (17:54)
[2022-12-17 20:09] LABS: Hematocrit 35.3 % (37-47); Hemoglobin 11.1 g/dL (12.0-15.0); Mean Corp Hgb Conc 31.4 g/dL (32-36); Mean Corpuscular Hgb 28.2 pg (27.0-32.0); Mean Corpuscular Volume 89.6 fL (81-99); Mean Platelet Vol. 11.4 fl (6.2-12.0); Platelet Count 187 K/mm3 (150-450); RBC Distribution Width CV 16.1 % (11.6-14.6); RBC Distribution Width SD 51.5 fl (35.1-43.9); Red Blood Count 3.94 M/mm3 (4.2-5.4); White Blood Count 11.6 K/mm3 (4.4-11.0)
[2022-12-17] MEDS: cycloBENZAPRine HCl 5 MG TABLET PO (20:18)
[2022-12-17 20:21] LABS: Protein, Urine (Random) 9.9 mg/dL (<11.9); Protein:Creat Ratio 559 mg/g CRE (0-200)
[2022-12-17 20:24] LABS: Uric Acid 3.4 mg/dL (2.6-6.0)
[2022-12-17 20:30] LABS: ALB/GLOB Ratio 0.7 RATIO (0.9-2.4); AST(SGOT) 23 U/L (15-37); Alanine Aminotransfer ALT/SGPT 19 U/L (13-56); Albumin, Serum 2.7 g/dL (3.2-5.0); Alkaline Phosphatase 137 U/L (45-117); Anion Gap 4 (5-15); BUN 7 mg/dL (7-18); BUN/Creat Ratio 13.8 RATIO (10-20); Calcium,Total 8.7 mg/dL (8.5-10.1); Chloride 108 mmol/L (98-107); Creatinine, Serum 0.51 mg/dL (0.55-1.02); EST Glomerular Filtration Rate 149 mL/min (>60); Est Glom Filt Rate - Afr Amer 180 mL/min (>60); Estimated Creatinine Clearance 136.75 ml/min; Globulin 4.1 g/dL (2.2-4.2); Glucose 94 mg/dL (74-106); Potassium 4.1 mmol/L (3.5-5.1); Protein, Total 6.8 g/dL (6.4-8.2); Sodium Level 135 mmol/L (136-145)
[2022-12-17 20:32] LABS: LDH 203 U/L (84-246)
[2022-12-17] MEDS: 0.9% Saline Lock 10 ML Syringe IV (20:52)
[2022-12-17 21:21] LABS: Absolute Lymphocyte Count 2.93 X10^3/uL (0.83-4.51); Absolute Neutrophil Count 7.6 X10^3/uL (2.0-7.7); Basophil# 0.03 X10^3/uL; Basophil% 0.3 % (0-1); Eosinophil# 0.07 X10^3/uL; Eosinophils% 0.6 % (0-5); Lymphocyte # 2.93 X10^3/ul (0.83-4.51); Lymphocyte % 25.8 % (19-41); Monocyte# 0.62 X10^3/uL; Monocyte% 5.5 % (0-10); NRBC Flagged by Analyzer 0 % (0-5); Neutrophil # 7.64 X10^3/uL (2.7-7.7); Neutrophil % 67.2 % (47-70)
[2022-12-17] MEDS: Lactated Ringers 1,000 ML 50 ML IV (21:23)
[2022-12-17 21:52] LABS: Syphilis Antibodies Non-reactive
[2022-12-17] MEDS: Penicillin G Pot 5,000,000 UNITS in 0.9% Normal Saline (100mL MB+) 100 ML 150 UNITS IV (22:30)
[2022-12-17 23:39] LABS: Partial Thromboplast Time 27.7 Seconds (24.1-36.2)
--- NOTE | 2022-12-17 23:59 | HP.PCM.OB_ITS ---
HPI - General General Date of Admission: 12/17/22 HPI Narrative AMBREEN HAWTHORNE, is a 32 y/o @ 39 weeks 3 days who presents to L&D for IOL. The patient started out a triage evaluatio for chest tightening radiating to her mid back and was given a GI cocktail and pepcid. This relieved most of the pain as patient describes only the tightening when she stands up now. However, during her assessment she had a blood pressure of 162/92 and then 15 min later 150's/90's. PIH labs were drawn and found to be normal, however her protein:cr ratio was found to be in the 500's and the diagnosis of pre-eclampsia was made. The decision was made to admit the patient and start pitocin. Prior to starting the pitocin the nurse called with report of a sinusoidal heart rate pattern. In further review, there appeared to be 3 separate episodes of this intermittent sinusoidal like tracing that was after 2 of the episodes, followed by minimal variability that then resolved and appeared category 1 with moderate variability and 15 x 15 accelerations without decelerations. Maternal Data Information ROBER Calculator Estimated Delivery Date Method Current WG Current Estimate 12/21/22 LMP (Certain) 39w 4d PFSH [facility] Medical History (Updated 12/18/22 @ 00:[address] Laney Alonso, ) depression Rheumatoid arthritis Home Medications certolizumab pegol 400 mg/2 mL (200 mg/mL x2) subcutaneous syringe kit (Cimzia) 400 mg subcut MONTHLY 03/31/22 [History Last Taken 11/19/22 11:51] folic acid 1 mg tablet 1 mg PO DAILY 05/13/22 [History Last Taken 12/16/22 19:00 1 mg] multivitamin (One Daily Multivitamin tablet) 1 tab PO DAILY 05/13/22 [History Last Taken 12/17/22 12:00 1 TAB] Allergy/AdvReac Type Severity Reaction Status Date / Time No Known Allergies Allergy Verified 12/17/22 19:20 Family History Father Celiac disease Grandmother Diabetes Grandfather Heart disease Grandmother Diabetes Osteoporosis Surgical History Hx of wisdom tooth extraction Social History adopted: No household members: family number of children: 1 current occupational status: employed current occupation: [employer] current occupational exposures/hazards: No pets and animals: Yes (not managing litterbox) pets and animals: cat(s) and dog(s) history of recent travel: No sexually active: Yes Smoking Status: Never smoker alcohol intake: current alcohol intake frequency: holidays/special occasions only details: social- not while substance use type: does not use well-balanced diet: daily or most days caffeine: No eating out: 1-3 times/week during the past year weight has: remained stable stanley/quaker: Nondenominational seatbelt use: always do you feel safe at home: Yes additional social history: spouse - Arieler (asian studies program chair) History 2 Elective abortions Hx Para 1 Spontaneous abortions Hx # Term Pregnancies Ectopic pregnancies Hx # Pregnancies Multiple births # of living children 1 Past Pregnancies Del. Date Name GA/Weeks Outcome Route Bth Weight Gen Labor Lgth Anesthesia Del Locatn Provider FOB 07/01/20 [place] 42 live - full term 8#13oz Female epidural [place] Laney Patterson Delivery Date: 07/01/20 Last Updated by: Izabella Rivero IOL post date Visit Details Expected Delivery Route/Plan Labor Preferences- CB/BF classes: [] labor support person: [] labor intervention preferences: [] pain management options preferred: [] cut cord/dad catch: [] : [] PP control planned: [] discussed possible routes of delivery and associated risks: [] special requests: [] Plans Covid status: discussed Flu vaccine: discussed Tdap vaccine: given Rhogam: na LARC form signed:declined movement and labor precautions reviewed. Problem list reviewed and updated with the most current plan of care details and appropriate orders placed. Relevant counseling for the gestational age provided. Continue routine care and follow up unless otherwise noted in visit notes/problem list details OB Flowsheet Initial Weight: Not Recorded Date -?-?-?-?-?-?-?-?-?-?-?-?- EGA Weight BP Urine Prot -?-?-?-?-?-?-?-?-?-?-?-?- Glucose FHR FuHt Pres Dilation -?-?-?-?-?-?-?-?-?-?-?-?- Effaced St Visit Note 05/20/22 -?-?-?-?-?-?-?-?-?-?-?-?- 9w 2d 194 lb 126/82 -?-?-?-?-?-?-?-?-?-?-?-?- 180 -?-?-?-?-?-?-?-?-?-?-?-?- JV- single live iup consistent with LMP. ROBER 12/21/22. desires NIPT. 06/16/22 -?-?-?-?-?-?-?-?-?-?-?-?- 13w 1d 193 lb 6 oz 122/83 Nega tive -?-?-?-?-?-?-?-?-?-?-?-?- Negative 156 -?-?-?-?-?-?-?-?-?-?-?-?- LC- normal labs. no vb/cramping. discussed and desires AFP. 07/16/22 -?-?-?-?-?-?-?-?-?-?-?-?- 17w 3d 196 lb 4 oz 116/83 Trac e -?-?-?-?-?-?-?-?-?-?-?-?- Negative 155 -?-?-?-?-?-?-?-?-?-?-?-?- JV- going to [facility] tomorrow. no complaints. afp ordered. 08/13/22 -?-?-?-?-?-?-?-?-?-?-?-?- 21w 3d 198 lb 2 oz 198 lb 2 oz 125/82 Negative -?-?-?-?-?-?-?-?-?-?-?-?- Negative 150 -?-?-?-?-?-?-?-?-?-?-?-?- SM- no vb lof go od fm no regular ctx 09/10/22 -?-?-?-?-?-?-?-?-?-?-?-?- 25w 3d 200 lb 8 oz 111/75 Nega tive -?-?-?-?-?-?-?-?-?-?-?-?- Negative 154 25.5 -?-?-?-?-?-?-?-?-?-?-?-?- JV- no lof, vagi nal bleeding, or dec fm. no complaints. gct next visti. 10/08/22 -?-?-?-?-?-?-?-?-?-?-?-?- 29w 3d 204 lb 4 oz 107/69 Nega tive -?-?-?-?-?-?-?-?-?-?-?-?- Negative 140 28 -?-?-?-?-?-?-?-?-?-?-?-?- KW-no vb/lof/ctx . good fm. 3 hour on tuesday. 10/22/22 -?-?-?-?-?-?-?-?-?-?-?-?- 31w 3d 203 lb 138/80 Negative -?-?-?-?-?-?--?-?-?-?-?-?- Negative 145 31 -?-?-?-?-?-?-?-?-?-?-?-?- SM- no vb lof go od fm no regular ctx 11/05/22 -?-?-?-?-?-?-?-?-?-?-?-?- 33w 3d 206 lb 2 oz 114/69 Nega tive -?-?-?-?-?-?-?-?-?-?-?-?- Negative 145 34 -?-?-?-?-?-?-?-?-?-?-?-?- KW-no vb/lof/ctx . good fm. TDAP and flu today. 11/19/22 -?-?-?-?-?-?-?-?-?-?-?-?- 35w 3d 206 lb 128/80 Negative -?-?-?-?-?-?-?-?-?-?-?-?- Negative 140 36 -?-?-?-?-?-?-?-?-?-?-?-?- SM- no vb lof go od fm n regular ctx, had spotting last staurday and went away 11/25/22 -?-?-?-?-?-?-?-?-?-?-?-?- 36w 2d 203 lb 8 oz 112/76 Nega tive -?-?-?-?-?-?-?-?--?-?-?-?- Negative 155 38 -?-?-?-?-?-?-?-?-?-?-?-?- no vb/lof/ctx. g ood fm. GBS today 12/10/22 -?-?-?-?-?-?-?-?-?-?-?-?- 38w 3d 208 lb 2 oz 128/86 Nega tive -?-?-?-?-?-?-?-?-?-?-?-?- Negative 150 37 Cephalic 2 -?-?-?-?-?-?-?-?-?-?-?-?- 50 -3 JV- no lof , vaginal bleeding, or dec fm. gbs +, ekg was normal on l&D still having intermittent tachycardia 12/17/22 -?-?-?-?-?-?-?-?-?-?-?-?- 39w 3d 207 lb 6 oz 123/86 Nega tive -?-?-?-?-?-?-?-?-?-?-?-?- Negative 140 40 Cephalic 2 .5 -?-?-?-?-?-?-?-?-?-?-?-?- 60 -2 KW- no lof /vb. regular contractions. having heart palpitations and chest heaviness. to for evaluation. JV aware NST FHR Rate Baby A Baseline: 130 Variability:: Moderate Accelerations:: 15 x 15 Decelerations:: None NST Reactive:: Yes FHR Category:: Category I Uterine Activity:: intermittent contractions ROS Constitutional Constitutional: Denies change in weight, fatigue, fever(s), headache(s), poor appetite or weakness Eyes Eyes: Denies blurry vision, change in vision, seeing flashes or spots in vision ENT HEENT: Denies dizziness, headache(s), loss taste/smell or sore throat Cardiovascular Cardiovascular: Denies chest pain, dizziness, dyspnea, irregular heart rhythm, leg edema, palpitations, rapid heart rate or vomiting Respiratory/Chest Respiratory/Chest: Denies chest tightness, cough, dyspnea or breast pain Gastrointestinal Gastrointestinal: Denies abdominal pain, anorexia, constipation, cramping, diarrhea, hemorrhoids, vomiting or weight changes Genitourinary Genitourinary: Denies dysuria, flank pain, genital lesions, genital pain, urinary frequency or urinary urgency Musculoskeletal Musculoskeletal: Denies back pain, difficulty walking, joint pain, limited range of motion, muscle cramps or numbness Integumentary Integumentary: Denies lesions or unusual bruising Neurologic Neurologic: Denies abnormal movements, abnormal speech, dizziness, numbness, seizure-like activity or syncope Psychiatric Psychiatric: Denies anxiety, behavioral changes, change in appetite, change in l ibido, cognitive impairment, confusion, depression, difficulty concentrating, hallucinations or suicidal thoughts Endocrine Endocrinology: Denies excessive sweating, polydipsia or polyuria Hematologic/Lymphatic Hematologic/Lymphatic: Denies easy bleeding, easy bruising or lymphadenopathy Allergic/Immunologic Allergic/Immunologic: Denies itchy eyes, lip swelling, seasonal rhinorrhea, rhinitis, throat swelling, tongue swelling, eczemia, wheezing or asthma Vital Signs Vital Signs Vital Signs: 12/17/22 15:15 12/17/22 15:15 12/17/22 17:20 Temperature Temperature Source Pulse Rate 92 90 Blood Pressure 134/89 H BP Systolic 134 BP Diastolic 89 Pulse Ox 12/17/22 17:20 12/17/22 19:14 12/17/22 19:14 Temperature Temperature Source Pulse Rate 87 Blood Pressure 162/98 H BP Systolic 162 BP Diastolic 98 Pulse Ox 99 12/17/22 19:14 12/17/22 19:13 12/17/22 19:13 Temperature 97.7 F L Temperature Source Temporal Pulse Rate Blood Pressure BP Systolic BP Diastolic Pulse Ox 98 12/17/22 19:30 12/17/22 19:30 12/17/22 15:15 Temperature Temperature Source Tympanic Pulse Rate 81 Blood Pressure 157/92 H BP Systolic 157 BP Diastolic 92 Pulse Ox 12/17/22 20:06 12/17/22 20:06 12/17/22 15:15 Temperature 97.9 F Temperature Source Pulse Rate 87 Blood Pressure 131/79 H BP Systolic 131 BP Diastolic 79 Pulse Ox 12/17/22 20:16 12/17/22 20:16 12/17/22 20:26 Temperature Temperature Source Pulse Rate 86 Blood Pressure 123/79 H 119/77 BP Systolic 123 119 BP Diastolic 79 77 Pulse Ox 12/17/22 20:26 12/17/22 21:33 12/17/22 21:33 Temperature Temperature Source Temporal Pulse Rate 86 99 Blood Pressure BP Systolic BP Diastolic Pulse Ox 12/17/22 21:33 12/17/22 21:33 12/17/22 21:35 Temperature 98.4 F Temperature Source Pulse Rate Blood Pressure 135/84 H BP Systolic 135 BP Diastolic 84 Pulse Ox 98 12/17/22 21:35 12/17/22 22:37 12/17/22 22:37 Temperature Temperature Source Temporal Pulse Rate 110 H Blood Pressure 130/80 H BP Systolic 130 BP Diastolic 80 Pulse Ox 12/17/22 22:37 12/17/22 22:37 12/17/22 22:37 Temperature 98.6 F Temperature Source Pulse Rate 85 Blood Pressure BP Systolic BP Diastolic Pulse Ox 98 12/17/22 23:20 12/17/22 23:40 12/17/22 23:40 Temperature Temperature Source Temporal Pulse Rate 88 Blood Pressure BP Systolic BP Diastolic Pulse Ox 98 12/17/22 23:20 12/17/22 23:42 12/17/22 23:42 Temperature 97.1 F L Temperature Source Pulse Rate 80 Blood Pressure 143/88 H BP Systolic 143 BP Diastolic 88 Pulse Ox Weight Weight: 206 lb 6 oz Body Mass Index (BMI) 35.4 Physical Exam Const alert, oriented x3, no apparent distress and healthy appearing General Appearance: cooperative; Negative for anxious HEENT normocephalic Face and Sinus: normal facial exam Eyes EOMs intact bilaterally and no scleral icterus General Eye: normal appearance of both eyes Neck full ROM and supple Lymph Lymphatic: no lymphadenopathy noted Chest Chest: abnormal inspection of the chest Resp normal respiratory effort Effort and Inspection: able to speak in complete sentences Cardio regular rate GI soft to palpation and non-tender Inspection: gravid Palpation: soft; Negative for tender external exam normal Narrative: cx is 2-3/ 80/-2. The head is asynclitic currently and predominantly to the patient's right side, but still in a vertex presentation on ultrasound examination. there does not appear to be any signs of placental hemorrhage. MARCELO is adequate (4 x 4 cm pocket) Back/Spine no CVA tenderness Extremity normal to inspection, full ROM and no clubbing, cyanosis or edema General Extremity: Negative for calf tenderness or edema Skin Lesions: no lesions Rashes: no rashes Psych mental status grossly normal Labs Labs Labs: Blood Type A POSITIVE Antibody Screen NEGATIVE Hct 35.3 % (37-47) L Hgb 11.1 g/dL (12.0-15.0) L Pap Smear Negative Syphilis Total Ab Non-reactive Rubella IgG Antibody Reactive (Nonreactive) Hep Bs Antigen Non-Reactive (Nonreactive) Hepatitis C Antibody Non-Reactive (Nonreactive) Chlamydia DNA (OMAR) Negative (Negative) N.gonorrhoeae DNA (OMAR) Negative (Negative) HIV 1&2 Antibody Non-Reactive (Nonreactive) Glucose 1 Hr 50 gm 141 mg/dL (70-140) H Gest Glucose Tolerance MG/DL Group B Strep DNA POSITIVE (Negative) H Miscellaneous Test Assessment & Plan (1) Chest pressure: (2) Maternal care for tachycardia during : COMMENT: EKG normal on 12/03/22 - normal sinus rhythm (3) Pre-eclampsia: (4) Positive GBS test: (5) Abnormal glucose affecting : COMMENT: 3 hr gtt ordered (6) Circumvallate placenta: COMMENT: growth US q 4 weeks -33% at 23 weeks, 46% at 28 weeks. 32 wk 42%; 10/9 55% (7) History of depression, currently : (8) Supervision of high-risk : COMMENT: PRR , ROBER 12/21/22, girl Isabela Dorantes, Leonardo (9) : QUALIFIERS: Weeks of gestation: 39 weeks Qualified Code(s): Z3A.39 - 39 weeks gestation of COMMENT: GBS pos, normal anatomy, NIPT low risk, nl Carrier testing, afp negative (10) Rheumatoid arthritis: COMMENT: on a biologic. plan for monthly growth scans (11) Abnormal heart rate or rhythm (FHR): PLAN: Plan due to the acute onset of high blood pressure, now resolved, placental abnormality, and now intermittent sinusoidal appearing pattern, plan is to collect coags and a kleinhauer betke test. The KB is a send out and will not return. if coags are abnormal or if the sinusoidal pattern occurs for the 4th time, there will be a low threshold for section. If coags are normal and the tracing remains unremarkable , will proceed with IOL as was planned and anticipate . plan for close observation.
[2022-12-18] VITALS (53 sets, daily range): BP systolic 110–154; BP diastolic 63–103; PULSE 70–121; RESP 16; TEMP 36.5–37.5; O2SAT 78–100
[2022-12-18 00:11] LABS: Fibrinogen 568 mg/dl (203-444); Prothrombin Time (Protime)PT. 13.2 SECONDS (11.7-14.9)
[2022-12-18] MEDS: Oxytocin 15 Units/NS 250ml 15 UNITS/250 ML IV.SOLN 2 UNITS IV (00:29)
[2022-12-18] MEDS: Penicillin G 3,000,000 Units 50 ML 100 UNITS IV ×2 (02:39→06:42)
[2022-12-18] MEDS: LACTATED RINGERS 500 ML 999 ML IV (04:30)
[2022-12-18] MEDS: fentaNYL-bupivacaine (epidural) 100 ML BAG EPIDURAL (05:28)
--- NOTE | 2022-12-18 06:11 | PN_ITS ---
Progress Note pt is now comfortable with epidural. current tracing: FHT: 130 Moderate variability reactive no decelerations category I tracing [place]: q2 min Contractions with some coupling IFM placed after membrane rupture- clear fluid return cx: /-2 reviewed tracing abnormalities since last note: improved A/P: mild pre-e. continue with pitocin
[2022-12-18] MEDS: Lactated Ringers 1,000 ML 200 ML IV (08:20)
--- NOTE | 2022-12-18 10:25 | OP.PCM_ITS ---
Assessment & Plan (1) Abnormal heart rate or rhythm (FHR): (2) Pre-eclampsia: (3) Chest pressure: (4) Maternal care for tachycardia during : COMMENT: EKG normal on 12/03/22 - normal sinus rhythm (5) Positive GBS test: (6) Abnormal glucose affecting : COMMENT: 3 hr gtt ordered (7) Circumvallate placenta: COMMENT: growth US q 4 weeks -33% at 23 weeks, 46% at 28 weeks. 32 wk 42%; 10/9 55% (8) History of depression, currently : (9) Supervision of high-risk : COMMENT: PRR , ROBER 12/21/22, girl Isabela Dorantes, Leonardo (10) : QUALIFIERS: Weeks of gestation: 39 weeks Qualified Code(s): Z3A.39 - 39 weeks gestation of COMMENT: GBS pos, normal anatomy, NIPT low risk, nl Carrier testing, afp negative (11) Rheumatoid arthritis: COMMENT: on a biologic. plan for monthly growth scans Maternal Data Information ROBER Calculator Estimated Delivery Date Method Current WG Current Estimate 12/21/22 LMP (Certain) 39w 4d Final ROBER: 12/21/22 Final ROBER Source: LMP Gestational age: 39 weeks 4 days Vaginal Delivery Maternal Presentation Maternal Presentation: Medically Indicated Induction Maternal Presentation: Lisa Malik presented for the complaint of chest tightening and was found to have mild pre-eclampsia at 39 weeks 4 days. She was admitted for IOL Type of Induction: Pitocin and Amniotomy Medical Reason for Induction: Preeclampsia, eclampsia Operative Information Date of Procedure: 12/18/22 Pre-Operative Diagnosis: 32 y/o @ 39 weeks 5 days, mild pre-eclampsia Post-Operative Diagnosis: 32 y/o @ 39 weeks 5 days, mild pre-eclampsia Surgery / Procedure Performed: Spontaneous Vaginal Delivery Type of Anesthesia: Epidural Drain: Esquivel to straight drain Estimated Blood Loss: 100cc Time of Delivery: 10:15 Findings Description of Procedure: Patient began pushing and delivered the head in the OA presentation. The head was delivered atraumatically. The anterior and posterior shoulders delivered without complication followed by the rest of the and the infant was placed on the maternal abdomen. Delayed cord clamping was employed for approximately 60 seconds. Cord was clamped and cut and gentle traction was applied to the cord and the placenta delivered spontaneously immediately following it was noted to be intact with three-vessel cord. The perineum and vagina were inspected and noted to have no laceration. EBL was 100 cc. Patient and tolerated delivery well. Presentation: Vertex Amniotic Membrane Rupture Type: Artificial Time of Membrane Rupture: 6:00 am Amniotic Fluid Description: Clear Placental Delivery Description: Spontaneous Placenta Disposition: [facility] Cord Vessel Description: 3 Vessels Cord Entanglement: None Infant A Gender: Female (1 minute): 8 (5 minute): 9 Delayed Cord Clamping: Yes Post Vaginal Delivery Medications Given After Delivery: IV Pitocin Episiotomy Description: None Laceration: None Complication Complications: None Multi Select Codes Urinary/Genital Urinary/Genital CPT Codes: 39356 Vaginal Delivery [facility]
--- NOTE | 2022-12-18 10:39 | DCINST_ITS ---
Discharge Instructions Diet Discharge Diet: No restrictions Activity Discharge Activity: Return to Normal Activity, May Not Drive (while taking narcotic pain medications.) and May Shower May resume sexual activity in: 4-6 weeks Dressing / Incision Call your doctor if your incision/area has: Continuous Slow Oozing, Sudden Increased Bleeding, Increased Pain/ Swelling, Increased Redness and Foul Smelling Discharge Follow Up Care Please Follow Up With: Laney Alonso DO When: Call [phone] to make an appointment with your doctor in 6 weeks. If you had elevated blood pressure or 4th degree laceration, you will need to be seen in 2 weeks. Test Results: Test results from this visit will be discussed in further detail at your follow- up appointment, if applicable. Discharge Plan Admission Admit Date/Time: 12/17/22 20:36 Primary Reason for Your Visit: vaginal delivery Attending Provider: Laney Alonso Primary Care Provider: Mercedez Granger Discharge Orders/Prescriptions Prescriptions: No Action Cimzia 400 mg/2 mL (200 mg/mL x 2) syringe kit 400 mg subcut MONTHLY multivitamin [One Daily Multivitamin] Tablet 1 tab PO DAILY folic acid 1 mg tablet 1 mg PO DAILY Referrals / Follow Up: Mercedez Granger DO [Primary Care Provider] - Disposition Disposition (needs filled in before D/C Order can be placed): Home, Self Care
[2022-12-18] MEDS: Oxytocin 15 Units/NS 250ml 15 UNITS/250 ML IV.SOLN 83 UNITS IV (10:50)
[2022-12-18] MEDS: Ibuprofen 600 MG Tablet PO (13:22)
[2022-12-18] MEDS: Acetaminophen 500 MG Tablet 1000 MG PO (17:52)
[2022-12-19] VITALS (7 sets, daily range): BP systolic 131–140; BP diastolic 81–92; PULSE 79–99; RESP 15–18; TEMP 36.3–37.2; O2SAT 98–100
[2022-12-19 00:28] LABS: Kleihauer-Betke Negative
[2022-12-19] MEDS: Ibuprofen 600 MG Tablet PO (09:13)
--- NOTE | 2022-12-19 09:29 | PCM.PN.OB ---
Subjective Subjective Patient doing well without complaints. Tolerating PO. Ambulating and voiding without difficulty. Feeding well. Denies chest pain, shortness of breath, calf pain/swelling, fevers, chills, lightheadedness. Objective Data Objective Data Vital Signs: Vital Signs Temp Pulse Resp BP Pulse Ox O2 Del Method 98.5 F 99 18 140/85 H 100 Room Air 12/19/22 09:08 12/19/22 09:08 12/19/22 09:08 12/19/22 09:08 12/19/22 09:08 12/19/22 09:08 Oxygen Delivery Method Room Air Weight: 206 lb 6 oz Body Mass Index (BMI) 35.4 Intake & Output: Intake and Output for Last 24 Hours 12/17/22 12/18/22 12/19/22 23:59 23:59 23:59 Intake Total 105 / 105 2456.03 / 2456.03 Output Total 1650 / 1650 Balance 105 / 105 806.03 / 806.03 Lab / Micro Data 12/17/22 19:50 12/17/22 19:50 Labs: Laboratory Results - last 24 hr 12/17/22 23:45: Kleihauer-Betke F Hgb Negative ROS Constitutional Constitutional: Denies chills, fatigue, fever(s), poor appetite or weakness Eyes Eyes: Denies blurry vision, change in vision, seeing flashes or spots in vision ENT HEENT: Denies dizziness, headache(s), loss taste/smell or sore throat Cardiovascular Cardiovascular: Denies chest pain, dizziness, dyspnea, irregular heart rhythm, palpitations or rapid heart rate Respiratory/Chest Respiratory/Chest: Denies chest tightness, cough, dyspnea or breast pain Gastrointestinal Gastrointestinal: Denies abdominal pain, constipation or vomiting Genitourinary Genitourinary: Denies dysuria or flank pain Musculoskeletal Musculoskeletal: Denies difficulty walking, joint pain, limited range of motion or numbness Neurologic Neurologic: Denies abnormal movements, abnormal speech, dizziness, numbness, seizure-like activity or syncope Psychiatric Psychiatric: Denies anxiety, behavioral changes, change in appetite, confusion, depression or suicidal thoughts Physical Exam Const alert, oriented x3 and no apparent distress General Appearance: cooperative and comfortable Resp normal respiratory effort Cardio regular rate GI normal to inspection, nondistended, normoactive bowel sounds GI Narrative: uterus is firm below umbilicus Palpation: soft Back/Spine no CVA tenderness and thoraco-lumbar ROM normal Extremity normal to inspection, no clubbing, cyanosis or edema, no calf tenderness and no pedal edema Psych mental status grossly normal, thought process normal, cooperative, affect normal, speech normal, activity/motor behavior normal, denies homicidal ideation and denies suicidal ideation Assessment & Plan (1) Status post vaginal delivery: PLAN: s/p PPD # 1- IOL for mild pre-e. bp's are 130's-140's/70's- 80's and asymptomatic. 1. routine post delivery care 2. breast feeding- support given 3. rh positive 4. rubella immune 5. plan for close outpatient follow up. rpt bp a couple more times before dc today and if has bp's in the 150's/90's-100 range will start antihypertensive medication. keep follow up appt tuesday.
== END 2022-12-19 10:55 | disposition home or self-care (01) | DRG 807 ==
LOC: WPOUT 20:38 → WP 20:38
PROVIDERS: Admitting Provider Obstetrics & Gynecology; PCP Family Medicine; Visit Provider Obstetrics & Gynecology
DX: O14.04 Mild to moderate pre-eclampsia, complicating childbirth (principal); Z37.0 Single live birth; M06.9 Rheumatoid arthritis, unspecified; O76 Abnormality in fetal heart rate and rhythm complicating labor and delivery; O99.892 Other specified diseases and conditions complicating childbirth; O99.824 Streptococcus B carrier state complicating childbirth; O43.113 Circumvallate placenta, third trimester; Z3A.39 39 weeks gestation of pregnancy; Z79.899 Other long term (current) drug therapy; Z87.59 Personal history of other complications of pregnancy, childbirth and the puerperium
CPT/HCPCS: 59025; 59050; 80053; 82570; 83615; 84156; 84550; 85025; 85384; 85460; 85610; 85730; 86780; 86850; 86900; 86901; 93005; 99221; J7120; A4216; G0378